=== PATIENT | female | born 2005 | race Caucasian/White ===

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

== ENCOUNTER 2025-06-15 09:56 | Emergency (ER) | payer BC, MEDICAID, SELFPAY ==
--- OUTSIDE RECORDS SUMMARY | 2025-06-15 10:04 | XMS_ITS | Clinical Summary ---
Author Organization [facility] Address [address] Nesbitt: Epic Prelude ADT CRYSTAL [place] [address] Care Team Providers Care Application Systems Architect Name Role Phone Kristopher Morel MD Primary Care Provider Allergies Active Allergy Reactions Criticality Noted Date Comments Codeine Hives,Rash High 01/11/2009 Egg Rash Low 08/21/2010 Electrolytes, Oral Rash Low 01/11/2009 Hydrocodone Hives,Rash High 01/11/2009 Milk Rash Low 08/21/2010 Penicillins Rash Low 04/30/2025 Medications ibuprofen (MOTRIN) 800 mg tablet Take 1 Tablet (800 mg) by mouth every 6 hours as needed for Pain, Mild. 30 Tablet 05/03/2025 Active Active Problems Problem Noted Date Diagnosed Date Hx of high blood pressure affecting , a ntepartum 03/28/2025 Supervision of high risk in third trim iris 02/15/2025 Short interval between pregn ancies affecting , antepartum 10/18/2024 History of shoulder dystocia in prior , currently 10/18/2024 Resolved Problems Problem Noted Date Diagnosed Date Resolved Date Supervision of high risk pre gnancy in second trimester 10/18/2024 03/14/2025 Encounters Date Type Department Care Team Description 06/01/2025 External Device Data STL ABSTRACTION Provider, Abstract 05/31/2025 External Device Data STL ABSTRACTION Provider, Abstract 05/31/2025 External Device Data [facility] ABSTRACTION Provider, Abstract 05/04/2025 External Device Data ST[facility] ABSTRACTION Provider, Abstract 05/03/2025 External Device Data STL ABSTRACTION Provider, Abstract 05/03/2025 External Device Data STL ABSTRACTION Provider, Abstract 05/02/[address] [phone] Lamonte InezDO Vaginal Bleeding 05/01/2025 4:59 AM CDT Anesthesia Event [facility] Labor and Delivery [address] [place] [phone] Migue Diehl MD 04/30/2025 8:10 PM CDT - 05/02/2025 1:42 PM CDT Hospital Encounter [facility] [address] [place] [address] Luis Enrique Howell MD History of shoulder dystocia in prior , currently Discharge Disposition: Home or Self Care 04/30/2025 Travel 04/26/2025 10:15 AM CDT visit [address] [phone] Luis Enrique Howell MD Supervision of high risk in third trimester (Primary Dx); Short interval between pregnancies affecting , antepartum; History of shoulder dystocia in prior , currently 04/19/2025 10:15 AM CDT visit [address] [phone] Luis Enrique Howell MD Supervision of high risk in third trimester (Primary Dx); Short interval between pregnancies affecting , antepartum; History of shoulder dystocia in prior , currently 04/12/2025 9:45 AM CDT visit [address] [phone] Luis Enrique Howell MD Supervision of high risk in third trimester (Primary Dx); History of shoulder dystocia in prior , currently ; Obesity in , antepartum; Short interval between pregnancies affecting , antepartum 03/31/[address] [place] [phone] Luis Enrique Howell MD follow up/DLL 03/30/2025 External Device Data STL ABSTRACTION Provider, Abstract 03/29/2025 External Device Data STL ABSTRACTION Provider, Abstract 03/29/2025 Results Follow-Up [address] [place] [phone] Luciana Meeks APRN-BC URINALYSIS WITH REFLEX CULTURE, URINALYSIS WITH REFLEX MICROSCOPIC 03/28/2025 10:40 AM CDT visit [address] [place] [phone] Luciana Meeks APRN-BC Supervision of high risk in third trimester (Primary Dx); History of shoulder dystocia in prior , currently ; Short interval between pregnancies affecting , antepartum; BMI 36.0-36.9,adult; Obesity in , antepartum; Hx of high blood pressure affecting , antepartum; UTI symptoms from Last 3 Months Immunizations Immunization Administration Dates Next Due Hepatitis B Vaccine 2005 Family History Medical History Relation Name Comments Healthy Father Healthy Mother Relation Name Status Comments Father Alive Mother Alive Social History Tobacco Use Types Packs/Day Years Used Date Smoking Tobacco: Never Smokeless Tobacco: Never Tobacco Cessation:Counseling Given: Not Answered Alcohol Use Standard Drinks/Week Comments Never 0 (1 standard drink = 0.6 oz pur e alcohol) Feeling Safe Answer Date Recorded Are you in a relationship wi th someone who hurts you emotionally and/or physically? 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 Gender Identity Not on file Sexual Orientation Not on file Last Filed Vital Signs Vital Sign Reading Time Taken Comments Blood Pressure 127/74 05/02/2025 9:37 AM CDT Pulse 82 05/02/2025 9:37 AM CDT Temperature 36.3 C (97.4 F) 05/02/2025 9:37 AM CDT Respiratory Rate 16 05/02/2025 9:37 AM CDT Oxygen Saturation 97% 05/02/2025 9:37 AM CDT Inhaled Oxygen Concentration - - Weight 103.4 kg (228 lb) 04/30/2025 8:32 PM CDT Height 167.6 cm (5' 6 ) 04/30/2025 8:32 PM CDT Body Mass Index 36.8 04/30/2025 8:32 PM CDT Plan of Treatment Upcoming Encounters Date Type Department Care Team (Late st Contact Info) Description 06/21/2025 9:20 AM CDT Office Visit [facility] [place] [facility]-[address] [place] [address] Luciana Meeks, LU[address] [place] [address] Health Maintenance Due Date Last Done Comments HEPATITIS B VACCINES (2 of 3 - 3-dose series) 2005 2005, 2005 CHLAMYDIA SCREENING (ANNUAL) 11-24 YEARS 2016 HPV VACCINES (1 - 3-dose series) 2020 DTAP/TDAP/TD VACCINES (1 - Tdap) 2024 INFLUENZA VACCINE (#1) 2025 Procedures Procedure Name Priority Date/Time Associated Diagnosis Comments CBC WITHOUT DIFFERENTIAL Routine 05/18/2025 3:59 PM CDT Lightheaded [place] ANESTHESIA BLOCK PB PLACEHOLDER CHARGE Routine 05/01/2025 10:58 AM CDT PATHOLOGY Pathology 05/01/2025 10:32 AM CDT PLACENTA CULTURE WITH GRAM STAIN Routine 05/01/2025 10:32 AM CDT EKG 12-LEAD Stat 05/01/2025 10:17 AM CDT MN ANESTHESIA BLOCK PB PLACEHOLDER CHARGE Routine 05/01/2025 5:01 AM CDT CBC WITHOUT DIFFERENTIAL Stat 04/30/2025 9:02 PM CDT EXTRA TUBE (URINE CONTAINER) Routine 04/30/2025 8:52 PM CDT EXTRA TUBE Routine 04/30/2025 8:52 PM CDT TYPE AND SCREEN Stat 04/30/2025 8:51 PM CDT RPR Routine 04/30/2025 8:51 PM CDT (BROTH-ENRICHED) GROUP B STREP DETECTION Routine 04/12/2025 9:06 AM CDT Supervision of high risk in third trimester URINALYSIS W/REFLEX MICROSCOPIC Routine 2025 9:30 AM CDT Hematuria, unspecified type URINALYSIS WITH REFLEX CULTURE Routine 03/28/2025 11:05 AM CDT Supervision of high risk in third trimester URINE CULTURE Routine 03/28/2025 11:05 AM CDT from Last 3 Months Results * (ABNORMAL) CBC WITHOUT DIFFERENTIAL (05/18/2025 3:59 PM CDT) Only the most recent of2 resultswithin the time period is included. WBC 9.0 3.8 - 10.8 Thousand/u L [facility] RBC 5.19(H) 3.80 - 5.10 Million/uL [facility] HEMOGLOBIN 15.5 11.7 - 15.5 g/dL [facility] HEMATOCRIT 47.4(H) 35.0 - 45.0 % [facility] MCV 91.3 80.0 - 100.0 fL [facility] MCH 29.9 27.0 - 33.0 pg [facility] MCHC 32.7 32.0 - 36.0 g/dL [facility] Comment: For adults, a slight decrease in the calculated MCHC value (in the range of 30 to 32 g/dL) is most likely not clinically significant; however, it should be interpreted with caution in correlation with other red cell parameters and the patient's clinical condition. RDW 12.8 11.0 - 15.0 % [facility] PLATELETS 300 140 - 400 Thousand/u L [facility] MPV 10.5 7.5 - 12.5 fL [facility] Comment: Test Performed at: [facility] [address] [address] Adalgisa Valdivia MD Blood 05/18/2025 3:59 PM CDT 05/19/2025 3:04 AM CDT Luis Enrique Howell MD HEMATOLOGY ORDERABLES Final Result Performing Organization Address City/State/[facility] Co de Phone Number [facility] [phone] [facility] [address] [place] [address] * [place] ANESTHESIA BLOCK PB PLACEHOLDER CHARGE (05/01/2025 10:58 AM CDT) Narrative Saúl Hoyos MD - 05/01/2025 10:58 AM CDT Saúl Hoyos MD 05/01/2025 10:58 AM Epidural Block Patient location during procedure: OB Reason for block: primary analgesia Staffing Performed: Anesthesiologist (/) Authorized by: Saúl Hoyos MD Performed by: Saúl Hoyos MD Preanesthetic Checklist Completed: patient identified, IV checked, site marked, risks and benefits discussed, surgical consent, monitors and equipment checked, pre-op evaluation and timeout performed Epidural Hand hygiene performed prior to procedure Patient was prepped and draped in usual sterile fashion Time out performed Mask worn Patient position: sitting Prep: Betadine Local Anesthetic: Lidocaine 1% without epinephrine Patient monitoring: continuous pulse oximetry, heart rate and non-invasive blood pressure Approach: midline [place] Identification: palpation technique Number of Attempts: 1 Epidural Needle Identification Technique: LEATHA saline Needle Type: Tuohy Needle Gauge: 17 G Needle Length: 3.5 in Location: lumbar (1-5) Catheter Catheter Type: end hole Catheter Size: 19 G Test dose: lidocaine 1.5% with epinephrine 1-to-200,000 and negative Test dose: 3 Events: easy and well tolerated Secured with: Tape and Tegaderm (Adhesive [place]) us Saúl Hoyos MD PROCEDURE/MINOR SURGICAL ORDERA BLES Final Result * PATHOLOGY (05/01/2025 10:32 AM CDT) CASE REPORT Surgical Pathology Report Case: [id number] Authorizing Provider: Luis Enrique Howell MD Collected: 05/01/2025 10:32 AM Ordering Location: [facility] Received: 05/02/2025 10:07 AM Labor and Delivery Pathologist: Nory Moreno MD Specimen: Placenta 2:15 PM CDT [facility] FINAL DIAGNOSIS A. Placenta - Third trimester placenta, 477 g, with focal acute villitis - Three-vessel umbilical cord - membranes with mild acute chorioamnionitis The above diagnosis was called to nurse Comfort for Dr. Dickey (05/03/2025 2:04 PM / wls). Nory Moreno MD [id number] 2:15 PM CDT [facility] at 1415 CDT GROSS DESCRIPTION A. Received fresh labeled Small - Placenta is a vázquez discoid placenta with attached membranes and umbilical cord. The marginally inserted membranes are ellison-pink and thickened. The trivascular umbilical cord is 1.1 cm (diameter) x 39.8 cm (length), with eccentric insertion, 4.8 cm from the placental edge. A 0.2 cm in diameter cystic lesion filled with white, tenacious fluid is identified within the distal aspect of the umbilical cord. After trimming the membranes and cord, the disc measures 18.2 x 17.0 x 2.2 cm and weighs 477 g. The surface is blue-purple and glistening, with typical arborizing vasculature and mild subchorionic fibrin deposition. The maternal surface shows intact cotyledons. Sectioning reveals a dark-red parenchyma. No masses or lesions are identified. Social Security Specialist sections are submitted as follows: A1: membranes A2: Proximal, distal umbilical cord A3-A4: Central placenta, full thickness Grossed by: Nelli Lopez MS, PA ([facility])CM 2:15 PM CDT [facility] CLINICAL INFORMATION Elective induction of labor at 39.2 weeks thick meconium. Maternal decreased LOC at delivery. 2:15 PM CDT [facility] COMMENT The [employer] voice-activated dictation system may have been used in the creation of this report. Inherent to this system is the possibility of errors in syntax, grammar, punctuation, or other areas that could impact interpretation. If there are interpretive questions about the report, please contact the performing pathologist. Unless gross only is specified in the diagnosis, the microscopic examination substantiates the above cited diagnosis. The performance characteristics of all immunohistochemical stains cited in this report (if any) were determined by the Diagnostic Immunohistochemistry Laboratory of [facility] in compliance with CLIA'88 regulations. Some of these tests rely on the use of analyte specific reagents and are subject to specific labeling requirements by the FDA. All controls show appropriate reactivity. This testing was developed by the [facility]ohist[facility] of [facility]. It has not been cleared or approved by the FDA. The FDA has determined that such clearance or approval is not necessary. 2:15 PM CDT [facility] Tissue SPECIMEN FROM PLACENTA / Unknown Collection / Unknown 05/01/2025 10:32 AM CDT 05/02/2025 10:07 AM CDT Comment:Elective induction o f labor at 39.2 weeks thick meconium. Maternal decreased LOC at delivery. us Luis Enrique Howell MD PATHOLOGY/CYTOLOGY ORDERABLE S Final Result [facility] CLIA # [id number] [facility] [address] [place] [address] * PLACENTA CULTURE WITH GRAM STAIN (05/01/2025 10:32 AM CDT) CULTURE No aerobic or anaerobic growth 05/04/2025 10:28 AM CDT [facility] GRAM STAIN No Polymorphonuclear WBC 05/04/2025 10:28 AM CDT [facility] GRAM STAIN No organisms observed 05/04/2025 10:28 AM CDT [facility] Tissue SPECIMEN FROM PLACENTA / Unknown Collection / Unknown 05/01/2025 10:32 AM CDT 05/01/2025 10:37 AM CDT us Luis Enrique Howell MD MICROBIOLOGY - GENERAL ORDER ALBERTO Final Result [facility] CLIA # [id number] [address] [place] [address] * EKG 12-LEAD (05/01/2025 10:17 AM CDT) 05/01/2025 10:1 7 AM CDT Narrative INTERFACE SYSTEM - 05/01/2025 1:20 [place] [address] Test Date: 2025-05-01 Pat Name: MIMA SMALL Department: 12 Room: [place] [address] Gender: Female Core 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: [email or web address] : 2005 Requested By: Order Number: [id number] Reading MD: Julianne Farias Measurements Intervals [place] Rate: 74 P: 34 MN: 110 QRS: 65 QRSD: 92 T: 44 QT: 380 QTc: 421 Interpretive Statements Sinus rhythm with short MN Otherwise normal ECG Electronically Signed On 05-01-2025 13:20:35 CDT by Julianne Farias Procedure Note Provider, Historical - 05/01/[address] [address] Test Date: 2025-05-01 Pat Name: MIMA SMALL Department: 12 Room: [place] [address] Gender: Female Core Rescuer: [email or web address] : 2005 Requested By: Order Number: [id number] Reading MD: Julianne Farias Measurements Intervals [place] Rate: 74 P: 34 MN: 110 QRS: 65 QRSD: 92 T: 44 QT: 380 QTc: 421 Interpretive Statements Sinus rhythm with short MN Otherwise normal ECG Electronically Signed On 05-01-2025 13:20:35 CDT by Julianne Farias us Saúl Hoyos MD ECG ORDERABLES Final Result INTERFACE SYSTEM Refer to clinic/hospital department * [place] ANESTHESIA BLOCK PB PLACEHOLDER CHARGE (05/01/2025 5:01 AM CDT) Narrative Migue Diehl MD - 05/01/2025 5:01 AM CDT Migue Diehl MD 05/01/2025 5:03 AM Epidural Block Patient location during procedure: OB Reason for block: primary analgesia Staffing Performed: Anesthesiologist (/) Authorized by: Migue Diehl MD Performed by: Migue Diehl MD Preanesthetic Checklist Completed: patient identified, IV checked, site marked, risks and benefits discussed, surgical consent, monitors and equipment checked, pre-op evaluation and timeout performed Epidural Hand hygiene performed prior to procedure Patient was prepped and draped in usual sterile fashion Time out performed Mask worn Patient position: sitting Prep: ChloraPrep Local Anesthetic: Lidocaine 1% without epinephrine Patient monitoring: continuous pulse oximetry, heart rate and non-invasive blood pressure Approach: midline [place] Identification: palpation technique Number of Attempts: 4 or more Epidural Needle Identification Technique: LEATHA saline Needle Type: Tuohy Needle Gauge: 18 G Needle Length: 3.5 in Location: lumbar (1-5) Catheter Epidural catheter type: Closed Tip. Catheter Size: 20 G Test dose: lidocaine 1.5% with epinephrine 1-to-200,000 and negative Test dose: 3 Events: difficulty Injection site dressing: Adhesive [place]. Assessment Outcome: Aborted Additional Notes Multiple attempts were unsuccessful. No CSF or heme encountered. Patient very uncomfortable during the procedure. Difficult body habitus. Complained of crampy pain in right hip that resolved with lateral decubitus position. us Migue Diehl MD PROCEDURE/MINOR SURGICAL ORDERA BLES Final Result * EXTRA TUBE (URINE CONTAINER) (04/30/2025 8:52 PM CDT) Urine URINE SPECIMEN OBTAINED BY CLEAN CATCH PROCEDURE / Unknown Collection / Unknown 04/30/2025 8:52 PM CDT 04/30/2025 8:57 PM CDT Luis Enrique Howell MD URINE ORDERABLES Final Resul t Performing Organization Address [facility] Co de Phone Number [facility] CLIA # [id number] [facility] [address] [address] [place] [address] * RPR (04/30/2025 8:51 PM CDT) RPR NON-REACTI VE Non-Reacti ve 04/30/2025 10:03 PM CDT [facility] Blood Venipuncture / Unknown 04/30/2025 8:51 PM CDT 04/30/2025 8:58 PM CDT us Luis Enrique Howell MD CHEMISTRY ORDERABLES Final R esult Performing Organization Address [facility] Co de Phone Number [facility] [employer] [facility] CLIA # [id number] [facility] [id number] * TYPE AND SCREEN (04/30/2025 8:51 PM CDT) ABO GROUP AB 04/30/2025 9:39 PM CDT [facility] [place] RH (D) TYPE Positive 04/30/2025 9:39 PM CDT [facility] ANTIBODY SCREEN Negative 04/30/2025 9:39 PM CDT [facility] Blood Venipuncture / Unknown 04/30/2025 8:51 PM CDT 04/30/2025 8:56 PM CDT Luis Enrique Howell MD BLOOD BANK ORDERABLES Edited Result - Final [facility][id number] [facility] [place] [address], * (BROTH-ENRICHED) GROUP B STREP DETECTION (04/12/2025 9:06 AM CDT) SOURCE *VAGINAL/REC [facility] B STREP BY PCR NOT DETECTED NOT DETECTED [facility] Comment: Note per CDC guidelines optimal recovery is achieved by swabbing both the lower vagina and rectum (through the anal sphincter). Test Performed at: [employer] [facility] [facility] [address] Adalgisa Valdivia MD Genital (Vaginal/rectal) 04/12/2025 9:06 AM CDT 04/12/2025 11:54 AM CDT Luis Enrique Howell MD MICROBIOLOGY - GENERAL ORDER ALBERTO Final Result [facility] [phone] [facility] [address] * (ABNORMAL) URINALYSIS WITH REFLEX MICROSCOPIC (2025 9:30 AM CDT) COLOR UA YELLOW YELLOW [facility] R[facility] CLARITY UA CLEAR CLEAR [facility] SPECIFIC GRAVITY UA 1.016 1.001 - 1.035 [facility] PH UA 6.5 5.0 - 8.0 [facility] GLUCOSE UA NEGATIVE NEGATIVE [facility] BILIRUBIN UA NEGATIVE NEGATIVE [facility] KETONES UA NEGATIVE NEGATIVE [facility] BLOOD UA 1+(A) NEGATIVE [facility] PROTEIN UA NEGATIVE NEGATIVE [facility] NITRITE UA NEGATIVE NEGATIVE [facility] LEUKOCYTE ESTERASE UA 1+(A) NEGATIVE [facility] RRL WBC UA 0-5 < OR = 5 /HPF [facility] RBC UA 0-2 < OR = 2 /HPF [facility] EPITHELIAL CELLS, URINE 6-10(A) < OR = 5 /HPF [facility] BACTERIA UA FEW(A) NONE SEEN /HPF [facility] CA OXALATE CRYSTAL MODERATE(A) NONE OR FEW /HPF [facility] HYALINE CAST NONE SEEN NONE SEEN /LPF [facility] Comment: Test Performed at: [facility] [address] [place] [address] Munir Valerio Urine URINE SPECIMEN OBTAINED BY CLEAN CATCH PROCEDURE / Unknown 2025 9:30 AM CDT 2025 2:39 PM CDT Luciana Meeks COMPUTING TUTOR-BC URINE ORDERABLES Final Result Performing Organization Address City/State/[facility] Co de Phone Number [facility] [phone] [facility] [address] [place] [address] * (ABNORMAL) URINALYSIS WITH REFLEX CULTURE (03/28/2025 11:05 AM CDT) COLOR UA YELLOW YELLOW [facility] R[facility] CLARITY UA CLEAR CLEAR [facility] R[facility] SPECIFIC GRAVITY UA 1.015 1.001 - 1.035 [facility] R[facility] PH UA 6.5 5.0 - 8.0 [facility] R[facility] GLUCOSE UA NEGATIVE NEGATIVE [facility] R[facility] BILIRUBIN UA NEGATIVE NEGATIVE [facility] R[facility] KETONES UA NEGATIVE NEGATIVE [facility] R[facility] BLOOD UA 2+(A) NEGATIVE [facility] R[facility] PROTEIN UA NEGATIVE NEGATIVE [facility] R[facility] NITRITE UA NEGATIVE NEGATIVE [facility] R[facility] LEUKOCYTE ESTERASE UA 3+(A) NEGATIVE [facility] RRL WBC UA 20-40(A) < OR = 5 /HPF [facility] RRL RBC UA 20-40(A) < OR = 2 /HPF [facility] RRL EPITHELIAL CELLS, URINE 10-20(A) < OR = 5 /HPF [facility] RRL BACTERIA UA FEW(A) NONE SEEN /HPF [facility] R[facility] HYALINE CAST 0-5(A) NONE SEEN /LPF [facility] R[facility] URINE CULTURE [facility] Comment: CULTURE INDICATED - RESULTS TO FOLLOW Test Performed at: [employer] [facility] [address] [place] [address] Munir WONG Urine URINE SPECIMEN OBTAINED BY CLEAN CATCH PROCEDURE / Unknown 03/28/2025 11:05 AM CDT 03/28/2025 12:37 PM CDT Luciana Meeks COMPUTING TUTOR- URINE ORDERABLES Final Result Performing Organization Address City/[facility] Co de Phone Number [facility] [phone] [facility] [address] [place] [address] * URINE CULTURE (03/28/2025 11:05 AM CDT) URINE CULTURE SEE NOTE [facility] Comment: CULTURE, URINE, ROUTINE Micro Number: [id number] Test Status: Final Specimen Source: Urine Specimen Quality: Adequate Result: Mixed genital iesha isolated. These superficial bacteria are not indicative of a urinary tract infection. No further organism identification is warranted on this specimen. If clinically indicated, recollect clean-catch, mid-stream urine and transfer immediately to Urine Culture Transport Tube. Test Performed at: [facility] [address] [place] [address] Adalgisa Valdivia MD 03/28/2025 11:0 5 AM CDT 03/28/2025 12:37 PM CDT Luciana Meeks [facility]NCARRAWAY [facility] MICROBIOLOGY - GENERAL ORDERABLES Final Result Performing Organization Address City/[facility]/ZIP Co de Phone Number [facility] [phone] [facility] [address] [place] [address] from Last 3 Months Insurance [facility] [employer] Advance Directives For more information, please contact: [phone] * Full Code (Latest Code Status on File) Date Activated Date Inactivated Comments 05/01/2025 2:59 PM 05/02/2025 4:14 PM * Full Code Date Activated Date Inactivated Comments 04/30/2025 8:29 PM 05/01/2025 2:59 PM Care Teams Application Systems Architect Relationship Specialty Start Date End Date Kristopher Morel MD [address] [place] [address] PCP - General Family Practice 08/21/10
[2025-06-15 10:05] VITALS: BP 134/79; PULSE 80; RESP 18; TEMP 36.8; O2SAT 97
--- NOTE | 2025-06-15 10:13 | W.ED.PREGNAN ---
HPI - General: Chief complaint: Vaginal Bleeding Stated complaint: heavy vaginal bleeding Time Seen by Provider: 06/15/25 10:05 Source: patient Mode of arrival: ambulatory Limitations: no limitations History of Present Illness: 20-year-old female who states she had had a vaginal livery in April she had not had any menstruation and had her first menstruation 5 days ago since having her baby. States its been heavy and she has been overflowing pads and having some clots. She denies any lightheadedness denies any pain. She denies any fevers or discharge. Related Data Home Medications ?Medication ?Instructions ?Recorded ?Confirmed No Known Home Medications 06/15/25 06/15/25 Allergies Allergy/AdvReac Type Severity Reaction Status Date / Time ceftriaxone (From Rocephin) Allergy ALGY-Anaphy Verified 06/15/24 07:51 laxis codeine Allergy ALGY-Anaphy Verified 06/15/24 07:51 laxis hydrocodone Allergy ALGY-Anaphy Verified 06/15/24 07:51 laxis Review of Systems : Reports: vaginal bleeding [facility] ED PFSH: Medical History Vaginal delivery Encounter for induction of labor No pertinent family history Surgical History No pertinent past surgical history Family History Mother Breast cancer Father Heart disease High cholesterol Hypertension Denies family history of Diabetes Stroke Social History Smoking and tobacco/nicotine status: never used tobacco/nicotine Physical Exam Const: COMMON NORMALS: no acute distress, patient oriented x3 and healthy appearing HENMT: COMMON NORMALS: normocephalic and atraumatic HEAD & SCALP: normocephalic and atraumatic Eye: COMMON NORMALS: conjunctivae normal CONJUNCTIVA: Yes conjunctivae normal Neck/C-Spine: COMMON NORMALS: full ROM and supple Chest: COMMONS NORMALS: normal inspection of the chest Resp: COMMON NORMALS: normal respiratory effort Cardio: COMMON NORMALS: regular rate, regular rhythm and No murmurs present (Cardio) RATE: regular rate RHYTHM: regular rhythm GI: COMMON NORMALS: Normal to inspection, nondistended, normoactive bowel sounds present, Soft to palpation, non-tender and no masses PALPATION: Yes Soft to palpation Extremity: COMMON NORMALS: normal to inspection and full ROM Neuro: COMMON NORMALS: patient oriented x3, moves all extremities and no focal motor deficits Psych: COMMON NORMALS: mental status grossly normal, Normal thought process present and cooperative THOUGHT PROCESS: Normal thought process present Skin: COMMON NORMALS: no rashes or lesions noted and no wounds GENERAL SKIN EXAM: no rashes or lesions noted Course Vital Signs: Vital signs: Vital Signs Temperature 98.2 F 06/15/25 10:05 Pulse Rate 80 06/15/25 10:05 Respiratory Rate 18 06/15/25 10:05 Blood Pressure 134/79 06/15/25 10:05 Pulse Oximetry 97 06/15/25 10:05 MDM - OB/Uterine Contractions Medical Decision Making Patient presents with abnormal vaginal bleeding. Differential includes heavy menstruation retained products no related bleeding. Patient likely does not have retained products as her delivery was in April her test here is negative. Her abdominal exam here is benign with no lower abdominal tenderness. She likely is having an heavy menstruation as this is her first menstruation since having her baby. Her vital signs here been normal she has had no lightheadedness or no signs of acute blood loss anemia. Her hemoglobin here was 14. I did go over all these findings with her and informed her she needs to follow-up with her PCP in 3 to 5 days she is return if she is worsening she understands agrees to plan. Medical Records I reviewed the patient's medical records. Lab Data I reviewed the patient's lab results. 06/15/25 10:20 06/15/25 10:20 Laboratory Results WBC 6.45 10^3/uL (4.5-13.0) 06/15/25 10:20 RBC 5.12 10^6/uL (3.85-5.65) 06/15/25 10:20 Hgb 14.80 g/dL (12.4-14.8) 06/15/25 10:20 Hct 43.8 % (36-47) 06/15/25 10:20 MCV 85.5 fl (85-98) 06/15/25 10:20 MCH 28.9 pg (27-33) 06/15/25 10:20 MCHC 33.8 g/dL (30-55) 06/15/25 10:20 RDW 12.2 % (12.1-15.1) 06/15/25 10:20 Plt Count 256 10^3/cmm (157-399) 06/15/25 10:20 MPV 9.7 fL (7.4-10.4) 06/15/25 10:20 Neut % (Auto) 45.1 % 06/15/25 10:20 Lymph % (Auto) 42.8 % 06/15/25 10:20 [place] % (Auto) 5.3 % 06/15/25 10:20 Eos % (Auto) 5.7 % 06/15/25 10:20 Baso % (Auto) 0.9 % 06/15/25 10:20 Neut # (Auto) 2.91 10^3/uL (1.8-8.0) 06/15/25 10:20 Lymph # (Auto) 2.8 10^3/uL (1.5-6.5) 06/15/25 10:20 [place] # (Auto) 0.3 10^3/uL (0.2-0.9) 06/15/25 10:20 Eos # (Auto) 0.4 10^3/uL (0.0-0.8) 06/15/25 10:20 Baso # (Auto) 0.1 10^3/uL (0.0-0.1) 06/15/25 10:20 Nucleated RBC % (auto) 0 % 06/15/25 10:20 Nucleated RBCs # 0.0 /100WBC 06/15/25 10:20 PT 12.90 SECONDS (12.1-14.9) 06/15/25 10:20 INR 0.91 (0.8-1.2) 06/15/25 10:20 Sodium 139 mmol/L (136-145) 06/15/25 10:20 Potassium 4.2 mmol/L (3.5-5.1) 06/15/25 10:20 Chloride 102 mmol/L (98-107) 06/15/25 10:20 Carbon Dioxide 25 mmol/L (22-29) 06/15/25 10:20 Anion Gap 16.2 (5-19) 06/15/25 10:20 BUN 13 mg/dL (6-20) 06/15/25 10:20 Creatinine 0.6 mg/dL (0.5-0.9) 06/15/25 10:20 GFR Calculation 127.5 mL/min (90-130) 06/15/25 10:20 Glucose 100 mg/dL (65-115) 06/15/25 10:20 Calculated Osmolality 288 mOsm/kg (285-295) 06/15/25 10:20 Calcium 9.6 mg/dL (8.5-10.5) 06/15/25 10:20 Total Bilirubin 0.5 mg/dL (0.15-1.2) 06/15/25 10:20 AST 17 U/L (0-32) 06/15/25 10:20 ALT 21 U/L (0-33) 06/15/25 10:20 Alkaline Phosphatase 113 U/L (35-105) H 06/15/25 10:20 Total Protein 7.5 g/dL (6.6-8.7) 06/15/25 10:20 Albumin 4.7 g/dL (3.5-5.2) 06/15/25 10:20 Globulin 2.8 g/dL (1.3-4.6) 06/15/25 10:20 Ser , Semi-Qnt < 1.00 mIU/mL 06/15/25 10:20 No radiology studies performed this visit Discharge Plan Discharge Patient Disposition: Home Clinical Impression: Vaginal bleeding Condition: Stable Prescriptions: No Action No Known Home Medications Discharge Orders: Discharge ED (Routine); Ordered 06/15/25 Ordered By: Mansi Wilder Referrals: John Dickey MD [Primary Care Provider, Family Practice] - 4-7 days Discharge Diet: Advance as tolerated Discharge Activity: Resume usual activity Patient Instructions: Abnormal (Dysfunctional) Uterine Bleeding (ED) Print Language: Mongolian Coding Level of Care Code ED Dental App[employer] Repairer for Ladi Mehta
[2025-06-15 10:29] LABS: Hematocrit 43.8 % (36-47); Hemoglobin 14.80 g/dL (12.4-14.8); Mean Corpuscular HGB Conc 33.8 g/dL (30-55); Mean Corpuscular Hemoglobin 28.9 pg (27-33); Mean Corpuscular Volume 85.5 fl (85-98); Nucleated Red Blood Cells % 0 %; Platelet Count 256 10^3/cmm (157-399); Red Blood Count 5.12 10^6/uL (3.85-5.65); White Blood Count 6.45 10^3/uL (4.5-13.0)
[2025-06-15 10:48] LABS: Alanine Aminotransferase 21 U/L (0-33); Albumin Level 4.7 g/dL (3.5-5.2); Alkaline Phosphatase 113 U/L (35-105); Anion Gap 16.2 (5-19); Aspartate Amino Transferase 17 U/L (0-32); Blood Urea Nitrogen 13 mg/dL (6-20); Calcium 9.6 mg/dL (8.5-10.5); Carbon Dioxide 25 mmol/L (22-29); Chloride 102 mmol/L (98-107); Globulin 2.8 g/dL (1.3-4.6); Glucose 100 mg/dL (65-115); Osmolality Calculated 288 mOsm/kg (285-295); Potassium 4.2 mmol/L (3.5-5.1); Sodium 139 mmol/L (136-145); Total Protein 7.5 g/dL (6.6-8.7)
[2025-06-15 10:55] LABS: Prothrombin Time 12.90 SECONDS (12.1-14.9)
[2025-06-15 10:59] LABS: INR 0.91 (0.8-1.2)
[2025-06-15 11:40] VITALS: BP 133/86; PULSE 71; O2SAT 98
== END 2025-06-15 11:41 | disposition home or self-care (01) ==
PROVIDERS: Emergency Provider Emergency Medicine; PCP Family Medicine
DX: N93.9 Abnormal uterine and vaginal bleeding, unspecified (principal)
CPT/HCPCS: 36415; 80053; 84702; 85025; 85610; 99283